=== PATIENT | male | born 2005 | race Two or more races ===

== ENCOUNTER 2024-04-08 03:55 | Emergency (ER) | payer OTHER ==
[~2024-04-08] VITALS: Ht 177.8 cm; Wt 55.3 kg
[2024-04-08 03:55] VITALS: BP 127/87; PULSE 77; RESP 20; O2SAT 96
== END 2024-04-08 07:56 | disposition left against medical advice (07) ==
LOC: ER 03:55
DX: R21 Rash and other nonspecific skin eruption (principal); Z53.21 Procedure and treatment not carried out due to patient leaving prior to being seen by health care provider